=== PATIENT | male | born 1980 | race American Indian/Alaskan Native ===

== ENCOUNTER 2021-11-11 20:16 | Emergency (ER) | payer OTHER ==
[2021-11-11 20:59] VITALS: BP 128/82
[2021-11-12] MEDS ORDERED: ONDANSETRON 4 MG ODT TAB PO STA (01:53)
[2021-11-12] MEDS ORDERED: HYDROcodone/ACETAMINOPHEN 5-325 MG TAB PO STA (01:53)
[2021-11-12] MEDS ORDERED: HYDROcodone/ACETAMINOPHEN 5-325 MG TAB PO ONE (02:18)
[2021-11-12] MEDS ORDERED: ONDANSETRON 4 MG ODT TAB PO ONE (02:19)
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
== END 2021-11-12 03:19 | disposition home or self-care (01) ==
LOC: ED 20:16
DX: M54.2 Cervicalgia (principal); V87.7XXA Person injured in collision between other specified motor vehicles (traffic), initial encounter; Y93.89 Activity, other specified; Y92.488 Other paved roadways as the place of occurrence of the external cause; Y99.8 Other external cause status
CPT/HCPCS: 99282; J3490; Q0162